=== PATIENT | female | born 1980 | race Two or more races ===

== ENCOUNTER → 2025-04-17 | Emergency (ER) | payer OTHER ==
[~2025-04-17] VITALS: Ht 162.6 cm; Wt 59.0 kg
[~2025-04-17] MED LIST: FAMOTIDINE/PF 20 MG/2 ML VIAL IV ONE; FAMOtidine 200mg/20ml VIAL ONE; KETOROLAC TROMETHAMINE 30 MG VIAL IV ONE; KETOROLAC TROMETHAMINE 30 MG VIAL ONE; PRILOSEC OTC20 MG PO
[2025-04-17 17:06] LABS: BASO % 0.3 % (0.1-1.2); EOS # 0.07 (0.04-0.54); HEMATOCRIT 38.5 % (34.1-44.9); LYMPH % 29.4 % (19.3-53.1); MEAN CORPUSCULAR HEMOGLOBIN 28.2 pg (25.6-32.2); MONO # 0.51 (0.24-0.82); MONO % 7.5 % (4.7-12.5); NEUT # 4.19 (1.56-6.13); NEUT % 61.7 % (34.0-71.1); PLATELET COUNT 399 K/uL (163-369); RED BLOOD COUNT 4.61 M/uL (3.93-5.22)
[2025-04-17 17:26] LABS: PH,URINE 5.5 (5.0-8.0); URINE APPEARANCE Clear; URINE BILIRRUBIN Negative (NEGATIVE); URINE BLOOD Negative; URINE COLOR Yellow; URINE GLUCOSE Negative (NEGATIVE); URINE KETONE 15 (NEGATIVE); URINE LEUKOCYTE Negative; URINE NITRATE Negative; URINE PROTEIN Negative (NEGATIVE); URINE UROBILINOGEN 0.2 E.U./dl
[2025-04-17 17:29] LABS: URINE BACTERIA 483.4 uL (0.0-1933); URINE EPITHELIAL CELLS 5.6 uL (0.0-38.8); URINE RBC 5.1 uL (0.0-20.8); URINE WBC 10.1 uL (0.0-23.2)
[2025-04-17 17:43] LABS: TYPE CELLS SQUAMOUS; URINE CAST 0.29 uL (0.0-1.40)
[2025-04-17 17:44] LABS: ALBUMIN 4.4 gm/dL (3.4-5.0); BILIRUBIN TOTAL 0.18 mg/dL (0.3-1.2); CALCIUM 9.9 mg/dL (8.5-10.1); CREATININE SERUM 0.58 mg/dL (0.55-1.02); GLOBULINA 3.5 G/DL (2.4-3.5); POTASSIUM 4.68 mEq/L (3.5-5.1); TOTAL PROTEIN 7.9 gm/dL (6.4-8.2)
== END | disposition home or self-care (01) ==
LOC: ER 12:34
PROVIDERS: General Practice
DX: R07.89 Other chest pain (principal); R14.2 Eructation; R53.81 Other malaise